=== PATIENT | female | born 1950 | race Caucasian/White ===

== ENCOUNTER 2019-06-26 20:41 | Inpatient (IN) ==
[2019-06-26] MEDS ORDERED: Naloxone 0.4 MG/ML INJ IVP PRN (23:03)
[2019-06-26] MEDS: 0.9 % Sodium Chloride 1,000 ML IVC SCH (23:41)
[2019-06-27 00:49] LABS: Basophils # 0.1 K/mcL (0.0-0.2); Basophils % 0.3 %; Hematocrit 30.1 % (35.3-44.9); Hemoglobin 9.5 g/dL (11.5-15.4); Immature Granulocytes % 0.5 % (0-4); Lymphocytes # 1.1 K/mcL (0.6-4.6); Lymphocytes % 6.2 %; Mean Corpuscular HGB Conc 31.6 g/dL (31.6-35.5); Mean Corpuscular Hemoglobin 27.4 pg (28.0-33.3); Mean Corpuscular Volume 86.7 fL (83.0-100.0); Mean Platelet Volume 10.7 fL (9.4-12.4); Monocytes # 1.5 K/mcL (0.0-1.3); Neutrophils # 15.4 K/mcL (1.6-8.9); Platelet Count 313 K/mcL (140-400); Red Blood Count 3.47 M/mcL (3.82-4.97); Red Cell Distribution Width 13.1 % (11.5-14.5); White Blood Count 18.2 K/mcL (4.3-11.1)
[2019-06-27 00:57] LABS: INR 2.3; Prothrombin Time 26.4 Seconds (9.4-12.1)
[2019-06-27 00:59] LABS: Activated Partial Thrombo Time 36.1 Seconds (26.0-36.0)
[2019-06-27 01:05] LABS: Albumin 3.6 g/dL (3.5-5.7); Bilirubin,Total 0.9 mg/dL (0.3-1.0); Calcium 8.8 mg/dL (8.6-10.3); Globulin 3.6 g/dL (2.4-3.5); Magnesium 1.2 mg/dL (1.6-2.6); Potassium 3.3 mEq/L (3.5-5.1); Total Protein 7.2 g/dL (6.4-8.9)
--- NOTE | 2019-06-27 07:45 | Internal Med History&Physical ---
Date of Encounter: 06/27/19 Time of Encounter: 03:00 Internal Medicine - H&P: HPI Chief complaint: Right Knee Pain Swelling History of present illness: Ms. Us is a 68 year old female with past medical history of paroxysmal atrial fibrillation on Eliquis, rheumatoid arthritis, chronic kidney disease and hypertension who initially presented to [facility] due to bilateral knee pain. Patient reports pain began last Tuesday and has gotten progressively worse since then. Patient reports pain with ambulation and now simply with movement of her knees, especially the right. Patient denies any trauma, injury or fall. Patient has noted increased swelling yesterday and today. Patient denies any prior similar episodes. No prior the surgery. Patient reports history of rheumatoid arthritis diagnosed in her mid 40s. Not currently on any DMARD's. Patient reports she does not have a fast food shift supervisor. Patient denies any history of gout. No reports of fever or chills. Initial workup at [facility] revealed a leukocytosis of 18. CT scan of the right knee was performed. CT report unavailable ago hardcopy was in patient's packet. Previous smoking history. Q uit 19 years ago. Denies alcohol use. Patient took her Eliquis last dose yesterday morning. Patient's knee was not tapped because of her anticoagulation. Case was discussed with orthopedics and patient was subsequently transferred for further evaluation. She received vancomycin and Zosyn while at [facility]. On my assessment patient was lying in bed in no acute distress. Does not clinically appear to be septic. Right knee swollen, nonerythematous and tender to mild palpation and any sort of manipulation. Past Med Surg Social Fam HX - Past Medical History Medical history: arthritis, atrial fibrillation, COPD, hypertension, renal disease Additional medical history: Stage 3 kidney disease Psychiatric history: anxiety - Past Surgical History Surgical History: no surgical history - Social History Smoking Status: Former smoker Packs per day: 1 Smokeless Tobacco Status: Yes Alcohol use: none Drug use: none - Family History Mother Age: 92 Family Member Ethnicity: Non- Living Status: Still Living Hx Family Endocrine Disorder: Yes (Diabetes) Internal Medicine - H&P: Meds Allergy/AdvReac Type Severity Reaction Status Date / Time No Known Allergies Allergy Verified 06/26/19 22:51 All Systems PM: A 10-system review of systems was performed and is negative for pertinent findings except as documented above in the HPI. - Constitutional Constitutional: no chills, no fever(s), no night sweats - EENT Eyes: no change in vision, no discharge, no pain, no photophobia Ears: no ear discharge, no ear pain, no tinnitus Nose, mouth and throat: no dysphagia, no nasal discharge, no neck pain, no sore throat - Cardiovascular Cardiovascular ROS IM: no chest pain, no diaphoresis, no dyspnea, no lightheadedness, no palpitations, no syncope - Respiratory Respiratory: no cough, no dyspnea, no wheezing, no excessive phlegm production - Gastrointestinal Gastrointestinal: no abdominal pain, no diarrhea, no hematemesis, no hematochezia, no melena, no nausea, no vomiting - Genitourinary Genitourinary: no change in urinary stream, no dysuria, no flank pain, no hematuria - Musculoskeletal Musculoskeletal ROS IM: no numbness, no tingling - Integumentary Integumentary IM: no rash, no unusual bruising - Neurological Neurological ROS: no confusion, no convulsions, no focal weakness, no numbness, no tingling, no tremor(s) - Hematologic/Lymphatic Hematologic/Lymphatic: no easy bruising - Constitutional Vitals: Temp Pulse Resp BP Pulse Ox 98.7 F 78 16 121/78 99 06/27/19 07:00 06/27/19 07:00 06/27/19 07:00 06/27/19 07:00 06/27/19 07:00 Exam: General: Alert and oriented 3 Skin:Normal color, no rash, no lesions. HEENT:EOM, pupils equal, round and reactive. Cardiovascular:Normal S1 & S2, no rubs, murmurs or gallops. No JVD. Pulse regular. Lungs:Normal breath sounds, no wheezes or crackles. Abdomen:Soft, non-tender, no rigidity. Extremities: No swelling of the right knee. Mildly warm. No erythema. Especially tender to palpation and manipulation. Neurological:Normal cognition and motor skills. Pulses:Carotid and radial pulses normal +2. Rest of the physical exam is non contributory Internal Med - H&P Results - Labs CBC & Chem 7: 06/27/19 00:24 06/27/19 00:24 Labs: Short CBC 06/27/19 Range/Units 00:24 WBC 18.2 H (4.3-11.1) K/mcL Hgb 9.5 L (11.5-15.4) g/dL Hct 30.1 L (35.3-44.9) % Plt Count 313 (140-400) K/mcL Neutrophils # 15.4 H (1.6-8.9) K/mcL BMP 06/27/19 00:24 Sodium 135 L Potassium 3.3 L Chloride 99 Carbon Dioxide 22 L BUN 26 H Creatinine 1.46 H Glucose 117 H Calcium 8.8 Liver Function 06/27/19 Range/Units 00:24 Total Bilirubin 0.9 (0.3-1.0) mg/dL AST 11 L (13-39) Units/L ALT 6 L (7-52) Units/L Alkaline Phosphatase 100 (34-104) Units/L Albumin 3.6 (3.5-5.7) g/dL - Assessment and Plan (1) Swelling of right knee joint Current Visit: Yes Status: Acute Assessment and plan: Patient presenting with right knee swelling of 5 days' duration associated with progressive pain initially with ambulation and weightbearing, and now with any movement of the knee. Edema of the right knee noted with tenderness to palpation. Exquisite pain elicited with any sort of manipulation of the knee. There is no erythema though there is mild warmth. Patient does have a leukocytosis of 18. Otherwise no other SIRS criteria. Obvious concern for septic arthritis. Though, given patient's history of reported rheumatoid arthritis and CKD, cannot rule out rheumatoid versus gouty flare. Knee was not tapped due to patient's history of A. fib currently on Eliquis, the last dose of which was taken yesterday morning. CT imaging was obtained however read not currently impacted. Patient currently in sinus rhythm. Orthopedics was consulted. -Continue supportive fluids -Pain control as needed -Continue vancomycin and Zosyn -We will send hard copy of CT scan of the knee downstairs to be uploaded -Patient's chads vasc score of 3 with a yearly risk of stroke of 3.2% which I feel is low enough to warrant holding patient's Eliquis for now given the fact that she is currently in sinus rhythm additionally and not starting patient on heparin drip. Await orthopedic evaluation and joint aspiration for further fluid analysis, culture is, crystals, cytology and Gram stain assessment. (2) Paroxysmal atrial fibrillation Current Visit: Yes Status: Acute Assessment and plan: History of atrial fibrillation currently on anticoagulation and rate control. Patient currently in sinus rhythm. We will hold Eliquis as discussed above. Continue rate control. (3) Rheumatoid arthritis Current Visit: Yes Status: Acute Assessment and plan: Patient reporting history of rheumatoid arthritis for the past 20 years. Patient states she has never seen a fast food shift supervisor and has never been on any other DMARD's due to her kidney function. She states her current condition is being managed by her family doctor. Qualifiers: Laterality: unspecified laterality Qualified Code(s): M06.9 - Rheumatoid arthritis, unspecified (4) Hypertension Current Visit: Yes Status: Acute Assessment and plan: Resume home antihypertensive as needed. Qualifiers: Hypertension type: essential hypertension Qualified Code(s): I10 - Essential (primary) hypertension (5) Chronic kidney disease Current Visit: Yes Status: Acute Assessment and plan: Patient reported history of chronic kidney disease. Current creatinine 1.46. Review of previous levels indicate a baseline around 1.6-1.7. Current GFR of 38 with previous levels fluctuating between CKD 3 and 4. -Continue fluids. We will monitor kidney function. Qualifiers: Chronic kidney disease stage: unspecified stage Qualified Code(s): N18.9 - Chronic kidney disease, unspecified - Time Spent With Patient Total time spent is greater than 50% in coordination of care (as documented) at patient's floor/unit and/or counseling patient:
[2019-06-27] MEDS: Piperacillin/Tazobactam 3.375 GM in 0.9 % Sodium Chloride Mini Bag 100 ML IVPB SCH ×2 (08:29→21:28)
--- NOTE | 2019-06-27 10:36 | Internal Med Progress Note ---
<Farrukh Caal I - Last Filed: 06/27/19 16:09> Hospitalist Progress Note - Encounter Date of Encounter: 06/27/19 Time of Encounter: 08:50 - Subjective Interval History: 60 year old female with PMH of A fib on eliquis , rheumatoid arthritis and CKD presented with right knee swelling of 5 days , today patient is seen and examined . she is still in pain , unable to move her right leg, Exquisite pain elicited with any sort of manipulation of the knee. There is no erythema though there is mild warmth. denies fever ,chills , denies nausea ,vomiting , diarrhea or constipation , no chest pain or SOB. no headaches numbness or weakness sensation . - Exam Vitals: Temp Pulse Resp BP Pulse Ox 98.7 F 78 16 121/78 99 06/27/19 07:00 06/27/19 07:00 06/27/19 07:00 06/27/19 07:00 06/27/19 07:00 Exam: General - Alert and oriented x 3, no acute distress and appears comfortable HEENT - Conjunctiva clear, no nasal or oral mucosal lesions/ulcerations , Heme/Lymph - No cervical or supraclavicular lymph node enlargement or tenderness. No pallor. Heart - S1S2 regular in rate and rhythm without murmurs, clicks or rubs. No peripheral edema. Radial pulses equal and strong Lungs - Unlabored breathing, decrease breath sound bilaterally ; no decrease in chest expansion Gastrointestinal - Soft, nontender, nondistended. Unable to palpate any hepatosplenomegaly Neurological - Gait normal, muscle strength 5/5 in all four extremities, sen sation intact Extremities - Swelling ,erythema and tenderness of right knee extending to mid thigh and lower leg , left extremity appears normal psych : normal mood and behaviour - Assessment and Plan (1) Swelling of right knee joint Current Visit: Yes Status: Acute Assessment and Plan: Patient presenting with right knee swelling of 5 days' duration associated with progressive pain initially with ambulation and weightbearing, and now with any movement of the knee. Edema of the right knee noted with tenderness to palpation. causes unknown yet could be septic arthritis vs gout wbc 18.2 , blood culture is pending Orthopedic is consulted for possible joint aspiration Continue vancomycin and Zosyn (2) Paroxysmal atrial fibrillation Current Visit: Yes Status: Acute Assessment and Plan: known history of Afib , rate controlled . on eliquis , We will hold Eliquis for possible arthrocentesis Patient currently in sinus rhythm (3) Rheumatoid arthritis Current Visit: Yes Status: Acute Assessment and Plan: Patient reporting history of rheumatoid arthritis for the past 20 years not on DMARD (4) Chronic kidney disease Current Visit: Yes Status: Acute Assessment and Plan: Patient reported history of chronic kidney disease. Current creatinine 1.46. Review of previous levels indicate a baseline around 1.6-1.7. Continue fluids. repeat BMP at morning avoid nephrotoxic medications - Time Spent with Patient Total time spent is greater than 50% in coordination of care (as documented) at patient's floor/unit and/or counseling patient: Internal Medicine: Result - Labs CBC & Chem 7: 06/27/19 00:24 06/27/19 00:24 Labs: Short CBC 06/27/19 Range/Units 00:24 WBC 18.2 H (4.3-11.1) K/mcL Hgb 9.5 L (11.5-15.4) g/dL Hct 30.1 L (35.3-44.9) % Plt Count 313 (140-400) K/mcL Neutrophils # 15.4 H (1.6-8.9) K/mcL BMP 06/27/19 00:24 Sodium 135 L Potassium 3.3 L Chloride 99 Carbon Dioxide 22 L BUN 26 H Creatinine 1.46 H Glucose 117 H Calcium 8.8 Liver Function 06/27/19 Range/Units 00:24 Total Bilirubin 0.9 (0.3-1.0) mg/dL AST 11 L (13-39) Units/L ALT 6 L (7-52) Units/L Alkaline Phosphatase 100 (34-104) Units/L Albumin 3.6 (3.5-5.7) g/dL - ABG Interpretation ABG results: PT/INR, D-dimer PT 26.4 Seconds (9.4-12.1) H 06/27/19 00:24 Consult Discharge Plan - Plan Referrals: Symone Ríos CNP [Primary Care Provider] - <Jorge Yang - Last Filed: 06/27/19 21:20> Hospitalist Progress Note - Encounter Date of Encounter: 06/27/19 - Exam Vitals: Temp Pulse Resp BP Pulse Ox 97.8 F 109 18 162/85 98 06/27/19 19:35 06/27/19 19:35 06/27/19 19:35 06/27/19 19:35 06/27/19 19:35 - Assessment and Plan (1) Swelling of right knee joint Current Visit: Yes Status: Acute (2) Paroxysmal atrial fibrillation Current Visit: Yes Status: Acute (3) Rheumatoid arthritis Current Visit: Yes Status: Acute (4) Hypertension Current Visit: Yes Status: Acute (5) Chronic kidney disease Current Visit: Yes Status: Acute - Time Spent with Patient Total time spent is greater than 50% in coordination of care (as documented) at patient's floor/unit and/or counseling patient: Internal Medicine: Result - Labs CBC & Chem 7: 06/27/19 00:24 06/27/19 00:24 Labs: Short CBC 06/27/19 Range/Units 00:24 WBC 18.2 H (4.3-11.1) K/mcL Hgb 9.5 L (11.5-15.4) g/dL Hct 30.1 L (35.3-44.9) % Plt Count 313 (140-400) K/mcL Neutrophils # 15.4 H (1.6-8.9) K/mcL BMP 06/27/19 00:24 Sodium 135 L Potassium 3.3 L Chloride 99 Carbon Dioxide 22 L BUN 26 H Creatinine 1.46 H Glucose 117 H Calcium 8.8 Liver Function 06/27/19 Range/Units 00:24 Total Bilirubin 0.9 (0.3-1.0) mg/dL AST 11 L (13-39) Units/L ALT 6 L (7-52) Units/L Alkaline Phosphatase 100 (34-104) Units/L Albumin 3.6 (3.5-5.7) g/dL Urine 06/27/19 Range/Units 16:10 Urine Color Yellow (Yellow) Urine Clarity Cloudy A (Clear) Urine pH 5.0 (5.0-8.0) pH Units Ur Specific [place] 1.017 (1.010-1.025) Urine Protein Trace (Neg-Trace) mg/dL Urine Glucose (UA) Normal (Normal) mg/dL - ABG Interpretation ABG results: PT/INR, D-dimer PT 26.4 Seconds (9.4-12.1) H 06/27/19 00:24 - Attending Attestation I saw evaluated and examined this patient and reviewed objective data including labs and my medical decision-making was reviewed with the Resident Physician. I agree with the documented findings, disposition and treatment plan as described except to any changes set forth below. We independently had [id number] contact with the patient. <Jorge Yang - Last Filed: 06/27/19 21:20> (3) Rheumatoid arthritis Qualifiers: Laterality: unspecified laterality Qualified Code(s): M06.9 - Rheumatoid arthritis, unspecified (4) Hypertension Qualifiers: Hypertension type: essential hypertension Qualified Code(s): I10 - Essential (primary) hypertension (5) Chronic kidney disease Qualifiers: Chronic kidney disease stage: unspecified stage Qualified Code(s): N18.9 - Chronic kidney disease, unspecified
--- NOTE | 2019-06-27 17:35 | Orthopedic Consult Note ---
Date of Encounter: 06/27/19 Time of Encounter: 17:00 Assessment and Plan (1) Rheumatoid arthritis Current Visit: Yes Status: Chronic Qualifiers: Rheumatoid arthritis location: unspecified site Rheumatoid factor presence: unspecified presence Qualified Code(s): M06.9 - Rheumatoid arthritis, unspecified (2) Swelling of right knee joint Current Visit: Yes Status: Acute History of Present Illness Chief complaint: right knee pain HPI: Ms. Us is a 68 year old female presenting to [facility] from [facility] for right knee pain with concern for septic joint. Patient reports history of RA long standing., patient denies ever having been on medication for this condition. She relates that she has been following with her PCP and taking Tramadol long term care phlebotomist. Denies history of fracture or orthopedic surgery She denies recent trauma. States her right knee began bothering her to the point she was having trouble ambulating and subsequently sought care at [facility] ED. Labwork and vitals reviewed. On exam patient lying comfortably in bed. States not too painful unless she moves the right knee. A&Ox3 Swelling to RLE noted including knee. Bilateral valgus deformity noted Palpation right knee reveals moderate effusion. Patient expresses pain upon palpation of the right knee. No area appears to be more focally tender. Motion is limited appx 5-45 degrees with no improvement upon passive rom apparently secondary to pain and stiffness. Patient cries out in pain with endpoint motion. No calf tenderness, erythema, or warmth noted b/l calves. Ankle ROM intact bilaterally. Left knee unremarkable. Sensation intact. DP pulses intact b/l Neurovascularly intact b/l LE Right knee effusion History of Rheumatoid arthritis Patient with leukocytosis in setting of rheumatoid arthritis and new onset right knee pain and effusion. Concern exists for joint source with elevated ESR, however, with imaging at present unavailable and patient with other possible, yet not yet evaluated sources. We will review imaging and attempt aspiration tomorrow sending for cultures and counts. Please keep patient NPO at midnight in case of need for IR aspiration versus surgical intervention Thank you for this consultation Past Med Surg Social Fam HX - Past Medical History Medical history: arthritis, atrial fibrillation, COPD, hypertension, renal disease Additional medical history: Stage 3 kidney disease Psychiatric history: anxiety - Past Surgical History Surgical History: no surgical history - Social History Smoking Status: Former smoker Packs per day: 1 Smokeless Tobacco Status: Yes Alcohol use: none Drug use: none - Family History Mother Age: 92 Family Member Ethnicity: Non- Living Status: Still Living Hx Family Endocrine Disorder: Yes (Diabetes) Medications and Allergies Apixaban [Eliquis] 5 mg PO BID 06/27/19 [History] Ascorbate Calcium [Vitamin C] 500 mg PO DAILY 06/27/19 [History] Aspirin [Adult Aspirin] 81 mg PO DAILY 06/27/19 [History] Cholecalciferol (D-3) [Vitamin D] 2,000 unit PO DAILY 06/27/19 [History] Citalopram Hydrobromide [Citalopram HBr] 10 mg PO DAILY 06/27/19 [History] Cyclobenzaprine [Flexeril] 10 mg PO TID PRN 06/27/19 [History] Famotidine [Pepcid] 20 mg PO BID 06/27/19 [History] Ferrous Sulfate [Iron] 325 mg PO DAILY 06/27/19 [History] Levothyroxine Sodium [Levo-T] 50 mcg PO QAM 06/27/19 [History] Metoprolol Tartrate 100 mg PO DAILY 06/27/19 [History] Simvastatin [Zocor] 40 mg PO HS 06/27/19 [History] Tramadol HCl [Ultram] 50 mg PO BID PRN 06/27/19 [History] Valsartan/Hydrochlorothiazide [Diovan Hct 160-25 mg Tablet] 1 tab PO DAILY 06/27/19 [History] Allergy/AdvReac Type Severity Reaction Status Date / Time No Known Allergies Allergy Verified 06/26/19 22:51 All Systems Reviewed: The remainder of the systems were reviewed and are negative Physical Exam - Constitutional Vitals: Temp Pulse Resp BP Pulse Ox 98.6 F 90 15 129/82 100 06/27/19 15:37 06/27/19 15:37 06/27/19 15:37 06/27/19 15:37 06/27/19 15:37 Results - Labs Result Diagrams: 06/28/19 05:18 06/28/19 05:18 Labs: Abnormal lab results WBC 18.2 K/mcL (4.3-11.1) H 06/27/19 00:24 RBC 3.47 M/mcL (3.82-4.97) L 06/27/19 00:24 Hgb 9.5 g/dL (11.5-15.4) L 06/27/19 00:24 Hct 30.1 % (35.3-44.9) L 06/27/19 00:24 MCH 27.4 pg (28.0-33.3) L 06/27/19 00:24 Neutrophils # 15.4 K/mcL (1.6-8.9) H 06/27/19 00:24 Monocytes # 1.5 K/mcL (0.0-1.3) H 06/27/19 00:24 ESR >= 130 mm/hr (0-15) H 06/27/19 00:24 PT 26.4 Seconds (9.4-12.1) H 06/27/19:24 APTT 36.1 Seconds (26.0-36.0) H 06/27/19 00:24 Sodium 135 mEq/L (136-145) L 06/27/19:24 Potassium 3.3 mEq/L (3.5-5.1) L 06/27/19:24 Carbon Dioxide 22 mEq/L (23-29) L 06/27/19 00:24 BUN 26 mg/dL (8-23) H 06/27/19 00:24 Creatinine 1.46 mg/dL (0.60-1.20) H 06/27/19 00:24 Est GFR ( Amer) 43 (> 60) L 06/27/19 00:24 Est GFR (Non-Af Amer) 36 (> 60) L 06/27/19 00:24 Glucose 117 mg/dL (70-105) H 06/27/19 00:24 Uric Acid 8.3 mg/dL (2.3-7.6) H 06/27/19 00:24 Magnesium 1.2 mg/dL (1.6-2.6) L 06/27/19:24 AST 11 Units/L (13-39) L 06/27/19:24 ALT 6 Units/L (7-52) L 06/27/19:24 C-Reactive Protein 290 mg/L (Less than 10) H 06/27/19 00:24 Globulin 3.6 g/dL (2.4-3.5) H 06/27/19 00:24 Albumin/Globulin Ratio 1.0 (1.1-2.2) L 06/27/19 00:24 H & H 06/27/19 Range/Units 00:24 Hgb 9.5 L (11.5-15.4) g/dL Hct 30.1 L (35.3-44.9) % All other labs normal. Consult Discharge Plan - Plan Referrals: Symone Ríos CNP [Primary Care Provider] -
[2019-06-27 18:28] LABS: Bilirubin,Urine Negative (Negative); Blood,Urine Small (Negative); Clarity,Urine Cloudy (Clear); Color,Urine Yellow (Yellow); Glucose,Urine (UA) Normal (Normal); Ketones,Urine Negative (Negative); Leukocyte Esterase,Urine Large (Negative); Nitrite,Urine Positive (Negative); Protein,Urine Trace mg/dL (Neg-Trace); Specific Gravity,Urine 1.017 (1.010-1.025); Urobilinogen,Urine Normal (Normal)
[2019-06-27 18:29] LABS: Bacteria,Urine None Seen per hpf (None-Few); Hyaline Casts,Urine None Seen per lpf (None-Few); Squamous Epithelial Cell,Urine Few per lpf (None-Few); WBC,Urine TNTC per hpf (0-3)
[2019-06-27] MEDS: Acetaminophen 325 MG TABLET PO PRN (21:37)
[2019-06-27] MEDS: Metoprolol 100 MG TABLET PO SCH (21:42)
[2019-06-28] MEDS: Piperacillin/Tazobactam 3.375 GM in 0.9 % Sodium Chloride Mini Bag 100 ML IVPB SCH ×3 (01:56→17:17)
[2019-06-28] MEDS: 0.9 % Sodium Chloride 1,000 ML IVC SCH (05:05)
[2019-06-28 05:31] LABS: Basophils % 0.2 %; Eosinophils # 0.1 K/mcL (0.0-0.6); Eosinophils % 0.4 %; Hematocrit 26.5 % (35.3-44.9); Hemoglobin 8.3 g/dL (11.5-15.4); Immature Granulocytes % 0.5 % (0-4); Lymphocytes # 1.3 K/mcL (0.6-4.6); Lymphocytes % 7.8 %; Mean Corpuscular HGB Conc 31.3 g/dL (31.6-35.5); Mean Corpuscular Hemoglobin 27.7 pg (28.0-33.3); Mean Corpuscular Volume 88.3 fL (83.0-100.0); Mean Platelet Volume 10.3 fL (9.4-12.4); Monocytes # 1.1 K/mcL (0.0-1.3); Monocytes % 6.6 %; Neutrophils # 13.6 K/mcL (1.6-8.9); Platelet Count 303 K/mcL (140-400); Red Cell Distribution Width 13.2 % (11.5-14.5); Segmented Neutrophils % 84.5 %; White Blood Count 16.1 K/mcL (4.3-11.1)
[2019-06-28 05:39] LABS: INR 1.9; Prothrombin Time 21.9 Seconds (9.4-12.1)
[2019-06-28 05:58] LABS: Albumin 3.1 g/dL (3.5-5.7); Albumin/Globulin Ratio 0.9 (1.1-2.2); Bilirubin,Total 0.7 mg/dL (0.3-1.0); Calcium 8.5 mg/dL (8.6-10.3); Globulin 3.3 g/dL (2.4-3.5); Magnesium 1.2 mg/dL (1.6-2.6); Phosphorous 3.8 mg/dL (2.7-4.5); Potassium 3.3 mEq/L (3.5-5.1); Total Protein 6.4 g/dL (6.4-8.9)
--- NOTE | 2019-06-28 07:20 | Internal Med Progress Note ---
<Farrukh Caal I - Last Filed: 06/28/19 16:35> Hospitalist Progress Note - Encounter Date of Encounter: 06/28/19 Time of Encounter: 09:12 - Subjective Interval History: today patient is seen and examined . she is still in pain but improving compared to yesterday , unable to move her right leg,pain elicited with any sort of manipulation of the knee. There is no erythema though there is mild warmth. denies fever ,chills , denies nausea ,vomiting , diarrhea or constipation , no chest pain or SOB. no headaches numbness or weakness sensation . - Exam Vitals: Temp Pulse Resp BP Pulse Ox 98.2 F 79 16 139/81 98 06/28/19 07:07 06/28/19 07:07 06/28/19 07:07 06/28/19 07:07 06/28/19 07:07 Exam: General - Alert and oriented x 3, no acute distress and appears comfortable HEENT - Conjunctiva clear, no nasal or oral mucosal lesions/ulcerations , Heme/Lymph - No cervical or supraclavicular lymph node enlargement or tenderness. No pallor. Heart - S1S2 regular in rate and rhythm without murmurs, clicks or rubs. No peripheral edema. Radial pulses equal and strong Lungs - Unlabored breathing, decrease breath sound bilaterally ; no decrease in chest expansion Gastrointestinal - Soft, nontender, nondistended. Unable to palpate any hepatosplenomegaly Neurological - Gait normal, muscle strength 5/5 in all four extremities, s ensation intact Extremities - Swelling and tenderness of right knee extending to mid thigh and lower leg , left knee appears normal psych : normal mood and behaviour - Assessment and Plan (1) Swelling of right knee joint Current Visit: Yes Status: Acute Assessment and Plan: Patient presenting with right knee swelling of 5 days' duration associated with progressive pain initially with ambulation and weightbearing, and now with any movement of the knee. Edema of the right knee noted with tenderness to palpation. causes unknown yet could be septic arthritis vs gout vitals are stable except for bp which was 139/81 , afebrile wbc 16.2 , blood culture from 06/27 is pending Orthopedic is consulted for joint aspiration today , Attempted aspiration unsuccessful in obtaining aspirate Plan to IR ultrasound guided aspiration with cultures of joint fluid to rule out knee as infectious source. Continue vancomycin and Zosyn day 2 (2) Paroxysmal atrial fibrillation Current Visit: Yes Status: Acute Assessment and Plan: known history of Afib , rate controlled . on eliquis , We will hold Eliquis for possible arthrocentesis Patient currently in sinus rhythm (3) Rheumatoid arthritis Current Visit: Yes Status: Chronic Assessment and Plan: Patient reporting history of rheumatoid arthritis for the past 20 years not on DMARD (4) Chronic kidney disease Current Visit: Yes Status: Acute Assessment and Plan: Patient reported history of chronic kidney disease. Current creatinine 1.59 Review of previous levels indicate a baseline around 1.6-1.7. Continue fluids. monitor bmp . k 3.3 replaced avoid nephrotoxic medications - Time Spent with Patient Total time spent is greater than 50% in coordination of care (as documented) at patient's floor/unit and/or counseling patient: Internal Medicine: Result - Labs CBC & Chem 7: 06/28/19 05:18 06/28/19 05:18 Labs: Short CBC 06/28/19 Range/Units 05:18 WBC 16.1 H (4.3-11.1) K/mcL Hgb 8.3 L (11.5-15.4) g/dL Hct 26.5 L (35.3-44.9) % Plt Count 303 (140-400) K/mcL Neutrophils # 13.6 H (1.6-8.9) K/mcL BMP 06/28/19 05:18 Sodium 136 Potassium 3.3 L Chloride 102 Carbon Dioxide 20 L BUN 35 H Creatinine 1.59 H Glucose 108 H Calcium 8.5 L Liver Function 06/28/19 Range/Units 05:18 Total Bilirubin 0.7 (0.3-1.0) mg/dL AST 12 L (13-39) Units/L ALT 7 (7-52) Units/L Alkaline Phosphatase 112 H (34-104) Units/L Albumin 3.1 L (3.5-5.7) g/dL Urine 06/27/19 Range/Units 16:10 Urine Color Yellow (Yellow) Urine Clarity Cloudy A (Clear) Urine pH 5.0 (5.0-8.0) pH Units Ur Specific [place] 1.017 (1.010-1.025) Urine Protein Trace (Neg-Trace) mg/dL Urine Glucose (UA) Normal (Normal) mg/dL - ABG Interpretation ABG results: PT/INR, D-dimer PT 21.9 Seconds (9.4-12.1) H 06/28/19 05:18 Consult Discharge Plan - Plan Referrals: Symone Ríos CNP [Primary Care Provider] - <Jorge Yang - Last Filed: 06/28/19 18:04> Hospitalist Progress Note - Encounter Date of Encounter: 06/28/19 - Exam Vitals: Temp Pulse Resp BP Pulse Ox 98.2 F 60 18 137/64 96 06/28/19 16:29 06/28/19 16:29 06/28/19 16:29 06/28/19 16:29 06/28/19 16:29 - Assessment and Plan (1) Swelling of right knee joint Current Visit: Yes Status: Acute (2) Paroxysmal atrial fibrillation Current Visit: Yes Status: Acute (3) Rheumatoid arthritis Current Visit: Yes Status: Chronic (4) Hypertension Current Visit: Yes Status: Acute (5) Chronic kidney disease Current Visit: Yes Status: Acute - Time Spent with Patient Total time spent is greater than 50% in coordination of care (as documented) at patient's floor/unit and/or counseling patient: Internal Medicine: Result - Labs CBC & Chem 7: 06/28/19 05:18 06/28/19 05:18 Labs: Short CBC 06/28/19 Range/Units 05:18 WBC 16.1 H (4.3-11.1) K/mcL Hgb 8.3 L (11.5-15.4) g/dL Hct 26.5 L (35.3-44.9) % Plt Count 303 (140-400) K/mcL Neutrophils # 13.6 H (1.6-8.9) K/mcL BMP 06/28/19 05:18 Sodium 136 Potassium 3.3 L Chloride 102 Carbon Dioxide 20 L BUN 35 H Creatinine 1.59 H Glucose 108 H Calcium 8.5 L Liver Function 06/28/19 Range/Units 05:18 Total Bilirubin 0.7 (0.3-1.0) mg/dL AST 12 L (13-39) Units/L ALT 7 (7-52) Units/L Alkaline Phosphatase 112 H (34-104) Units/L Albumin 3.1 L (3.5-5.7) g/dL Urine 06/27/19 Range/Units 16:10 Urine Color Yellow (Yellow) Urine Clarity Cloudy A (Clear) Urine pH 5.0 (5.0-8.0) pH Units Ur Specific [place] 1.017 (1.010-1.025) Urine Protein Trace (Neg-Trace) mg/dL Urine Glucose (UA) Normal (Normal) mg/dL - ABG Interpretation ABG results: PT/INR, D-dimer PT 21.9 Seconds (9.4-12.1) H 06/28/19 05:18 - Impressions Impressions Knee CT 06/28/19 08:37 IMPRESSION: Moderate tricompartmental osteoarthritis of the knee with joint space narrowing, subchondral changes and marginal osteophytes. Moderate joint effusion and Fofana's cyst. No acute fracture or dislocation. D/ / 06/28/2019 11:16:41 Raul Wolf MD / mariah Interpreting Provider: Raul Wolf MD - Attending Attestation I saw evaluated and examined this patient and reviewed objective data including labs and my medical decision-making was reviewed with the Resident Physician. I agree with the documented findings, disposition and treatment plan as described except to any changes set forth below. We independently had [id number] contact with the patient. <Farrukh Caal I - Last Filed: 06/28/19 16:35> (3) Rheumatoid arthritis Qualifiers: Rheumatoid arthritis location: unspecified site Rheumatoid factor presence: unspecified presence Qualified Code(s): M06.9 - Rheumatoid arthritis, unspecified (4) Chronic kidney disease Qualifiers: Chronic kidney disease stage: unspecified stage Qualified Code(s): N18.9 - Chronic kidney disease, unspecified <Jorge Yang - Last Filed: 06/28/19 18:04> (3) Rheumatoid arthritis Qualifiers: Rheumatoid arthritis location: unspecified site Rheumatoid factor presence: unspecified presence Qualified Code(s): M06.9 - Rheumatoid arthritis, unspecified (4) Hypertension Qualifiers: Hypertension type: essential hypertension Qualified Code(s): I10 - Essential (primary) hypertension (5) Chronic kidney disease Qualifiers: Chronic kidney disease stage: unspecified stage Qualified Code(s): N18.9 - Chronic kidney disease, unspecified
[2019-06-28] MEDS: Metoprolol 100 MG TABLET PO SCH (08:51)
--- NOTE | 2019-06-28 08:52 | Orthopedics Progress Note ---
Date of Encounter: 06/28/19 Time of Encounter: 16:17 - Assessment and Plan (1) Rheumatoid arthritis Current Visit: Yes Status: Chronic Qualifiers: Rheumatoid arthritis location: unspecified site Rheumatoid factor presence: unspecified presence Qualified Code(s): M06.9 - Rheumatoid arthritis, unspecified (2) Swelling of right knee joint Current Visit: Yes Status: Acute Subjective Interval history: Attempted aspiration under sterile conditions - unsuccessful in obtaining aspirate Patient tolerated well Discussed with Dr. Yang re: aspiration - patient is improved on antibiotics however having continued right knee pain Would recommend IR ultrasound guided aspiration with cultures of joint fluid to rule out knee as infectious source. CT lumbar reviewed with Dr. Irwin - appears as degenerative changes Objective Vital signs: Vital Signs Temp Pulse Resp BP Pulse Ox 06/28/19 07:07 98.2 F 79 16 139/81 98 06/28/19 03:26 97.7 F 68 17 104/64 99 06/28/19 00:14 98.3 F 64 16 97/61 94 06/27/19 19:35 97.8 F 109 18 162/85 98 06/27/19 15:37 98.6 F 90 15 129/82 100 Intake and Output 06/27/19 06/28/19 06/28/19 23:59 07:59 15:59 Intake Total 1200 / 1200 Output Total 700 / 700 Balance -700 / -350 1200 / 1200 Intake: IV Fluids 1200 / 1200 0.9 % Sodium Chloride 1,000 ML 1000 / 1000 @ 75 mls/hr IVC .[id number] [facility] Rx #:[id number] Zosyn 3.375 GM In 0.9 % Sodium 200 / 200 Chloride (Mini-Bag +) 100 ML @ 25 mls/hr IVPB Q8HR [facility] Rx#: [id number] Output: Straight Cath 700 / 700 Other: Blood Glucose* 86 114 - Labs CBC & BMP: 06/30/19 05:22 06/30/19 05:22 Labs: Abnormal lab results WBC 16.1 K/mcL (4.3-11.1) H 06/28/19 05:18 RBC 3.00 M/mcL (3.82-4.97) L 06/28/19 05:18 Hgb 8.3 g/dL (11.5-15.4) L 06/28/19 05:18 Hct 26.5 % (35.3-44.9) L 06/28/19 05:18 MCH 27.7 pg (28.0-33.3) L 06/28/19 05:18 MCHC 31.3 g/dL (31.6-35.5) L 06/28/19 05:18 Neutrophils # 13.6 K/mcL (1.6-8.9) H 06/28/19 05:18 Monocytes # 1.5 K/mcL (0.0-1.3) H 06/27/19 00:24 ESR >= 130 mm/hr (0-15) H 06/27/19 00:24 PT 21.9 Seconds (9.4-12.1) H 06/28/19 05:18 APTT 36.1 Seconds (26.0-36.0) H 06/27/19 00:24 Sodium 135 mEq/L (136-145) L 06/27/19 00:24 Potassium 3.3 mEq/L (3.5-5.1) L 06/28/19 05:18 Carbon Dioxide 20 mEq/L (23-29) L 06/28/19 05:18 BUN 35 mg/dL (8-23) H 06/28/19 05:18 Creatinine 1.59 mg/dL (0.60-1.20) H 06/28/19 05:18 Est GFR ( Amer) 39 (> 60) L 06/28/19 05:18 Est GFR (Non-Af Amer) 32 (> 60) L 06/28/19 05:18 Glucose 108 mg/dL (70-105) H 06/28/19 05:18 POC Glucose 114 mg/dL (70-99) H 06/28/19 05:52 Uric Acid 8.3 mg/dL (2.3-7.6) H 06/27/19 00:24 Calcium 8.5 mg/dL (8.6-10.3) L 06/28/19 05:18 Magnesium 1.2 mg/dL (1.6-2.6) L 06/28/19 05:18 AST 12 Units/L (13-39) L 06/28/19 05:18 ALT 6 Units/L (7-52) L 06/27/19 00:24 Alkaline Phosphatase 112 Units/L (34-104) H 06/28/19 05:18 C-Reactive Protein 290 mg/L (Less than 10) H 06/27/19 00:24 Albumin 3.1 g/dL (3.5-5.7) L 06/28/19 05:18 Globulin 3.6 g/dL (2.4-3.5) H 06/27/19 00:24 Albumin/Globulin Ratio 0.9 (1.1-2.2) L 06/28/19 05:18 Urine Clarity Cloudy (Clear) A 06/27/19 16:10 Urine Blood Small (Negative) H 06/27/19 16:10 Urine Nitrite Positive (Negative) A 06/27/19 16:10 Ur Leukocyte Esterase Large (Negative) H 06/27/19 16:10 Urine Microscopic RBC 3-5 per hpf (0-3) H 06/27/19 16:10 Urine Microscopic WBC TNTC per hpf (0-3) H 06/27/19 16:10 Vancomycin Trough 13 mcg/mL (5-10) H 06/28/19 05:18 Consult Discharge Plan - Plan Referrals: Symone Ríos, [employer]INE [employer]TER [Primary Care Provider] -
[2019-06-28] MEDS: Famotidine 20 MG TABLET PO SCH (19:58)
[2019-06-29] MEDS: Piperacillin/Tazobactam 3.375 GM in 0.9 % Sodium Chloride Mini Bag 100 ML IVPB SCH ×3 (00:29→16:59)
[2019-06-29 04:50] LABS: Basophils % 0.2 %; Eosinophils # 0.1 K/mcL (0.0-0.6); Eosinophils % 0.8 %; Hematocrit 26.4 % (35.3-44.9); Hemoglobin 8.5 g/dL (11.5-15.4); Immature Granulocytes % 0.4 % (0-4); Lymphocytes # 1.5 K/mcL (0.6-4.6); Lymphocytes % 9.6 %; Mean Corpuscular HGB Conc 32.2 g/dL (31.6-35.5); Mean Corpuscular Hemoglobin 28.2 pg (28.0-33.3); Mean Corpuscular Volume 87.7 fL (83.0-100.0); Mean Platelet Volume 10.4 fL (9.4-12.4); Monocytes % 6.5 %; Neutrophils # 12.8 K/mcL (1.6-8.9); Platelet Count 355 K/mcL (140-400); Red Blood Count 3.01 M/mcL (3.82-4.97); Red Cell Distribution Width 13.5 % (11.5-14.5); Segmented Neutrophils % 82.5 %; White Blood Count 15.5 K/mcL (4.3-11.1)
[2019-06-29 04:57] LABS: INR 1.6; Prothrombin Time 18.5 Seconds (9.4-12.1)
[2019-06-29 05:18] LABS: Albumin 3.1 g/dL (3.5-5.7); Albumin/Globulin Ratio 0.9 (1.1-2.2); Bilirubin,Total 0.6 mg/dL (0.3-1.0); Calcium 8.9 mg/dL (8.6-10.3); Globulin 3.5 g/dL (2.4-3.5); Magnesium 1.8 mg/dL (1.6-2.6); Potassium 4.5 mEq/L (3.5-5.1); Total Protein 6.6 g/dL (6.4-8.9)
[2019-06-29] MEDS: Metoprolol 100 MG TABLET PO SCH (08:20)
[2019-06-29] MEDS: Famotidine 20 MG TABLET PO SCH ×2 (08:21→20:17)
--- NOTE | 2019-06-29 14:09 | Internal Med Progress Note ---
<Jorge Yang - Last Filed: 06/29/19 16:19> Hospitalist Progress Note - Encounter Date of Encounter: 06/29/19 - Exam Vitals: Temp Pulse Resp BP Pulse Ox 98.5 F 75 17 117/54 98 06/29/19 15:53 06/29/19 15:53 06/29/19 15:53 06/29/19 15:53 06/29/19 15:53 - Assessment and Plan (1) Swelling of right knee joint Current Visit: Yes Status: Acute (2) Paroxysmal atrial fibrillation Current Visit: Yes Status: Acute (3) Rheumatoid arthritis Current Visit: Yes Status: Chronic (4) Hypertension Current Visit: Yes Status: Acute (5) Chronic kidney disease Current Visit: Yes Status: Acute - Time Spent with Patient Total time spent is greater than 50% in coordination of care (as documented) at patient's floor/unit and/or counseling patient: Internal Medicine: Result - Labs CBC & Chem 7: 06/29/19 04:00 06/29/19 04:00 Labs: Short CBC 06/29/19 Range/Units 04:00 WBC 15.5 H (4.3-11.1) K/mcL Hgb 8.5 L (11.5-15.4) g/dL Hct 26.4 L (35.3-44.9) % Plt Count 355 (140-400) K/mcL Neutrophils # 12.8 H (1.6-8.9) K/mcL BMP 06/29/19 04:00 Sodium 137 Potassium 4.5 D Chloride 103 Carbon Dioxide 20 L BUN 33 H Creatinine 1.37 H Glucose 114 H Calcium 8.9 Liver Function 06/29/19 Range/Units 04:00 Total Bilirubin 0.6 (0.3-1.0) mg/dL AST 34 (13-39) Units/L ALT 21 (7-52) Units/L Alkaline Phosphatase 221 H (34-104) Units/L Albumin 3.1 L (3.5-5.7) g/dL - ABG Interpretation ABG results: PT/INR, D-dimer PT 18.5 Seconds (9.4-12.1) H 06/29/19 04:00 - Impressions Impressions Joint Aspiration/Injection 06/29/19 12:00 IMPRESSION: Successful fluoroscopic-guided aspiration of the right knee. D/ / Rayo Abebe MD / Rayo Abebe MD Interpreting Provider: Rayo Abebe MD Consult Discharge Plan - Plan Referrals: Symone Ríos DESIGN CHIEF [Primary Care Provider] - - Attending Attestation I saw evaluated and examined this patient and reviewed objective data including labs and my medical decision-making was reviewed with the Resident Physician. I agree with the documented findings, disposition and treatment plan as described except to any changes set forth below. We independently had [id number] contact with the patient. <Farrukh Caal I - Last Filed: 06/29/19 18:54> Hospitalist Progress Note - Encounter Date of Encounter: 06/29/19 Time of Encounter: 09:20 - Subjective Interval History: today patient is seen and examined . she is still in pain said 10/10 , unable to move her right leg,pain elicited with any sort of manipulation of the knee. There is no erythema though there is mild warmth. denies fever ,chills , denies nausea ,vomiting , diarrhea or constipation , no chest pain or SOB. no headaches numbness or weakness sensation . - Exam Vitals: Temp Pulse Resp BP Pulse Ox 98.4 F 74 16 117/64 100 06/29/19 10:23 06/29/19 10:23 06/29/19 10:23 06/29/19 10:23 06/29/19 10:23 Exam: General - Alert and oriented x 3, no acute distress and appears comfortable HEENT - Conjunctiva clear, no nasal or oral mucosal lesions/ulcerations , Heme/Lymph - No cervical or supraclavicular lymph node enlargement or tenderness. No pallor. Heart - S1S2 regular in rate and rhythm without murmurs, clicks or rubs. No peripheral edema. Radial pulses equal and strong Lungs - Unlabored breathing, decrease breath sound bilaterally ; no decrease in chest expansion Gastrointestinal - Soft, nontender, nondistended. Unable to palpate any hepatosplenomegaly Neurological - Gait normal, muscle strength 5/5 in all four extremities, sensation intact Extremities - Swelling and tenderness of right knee extending to mid thigh and lower leg , left knee appears normal psych : normal mood and behaviour - Assessment and Plan (1) Swelling of right knee joint Current Visit: Yes Status: Acute Assessment and Plan: -Patient presenting with right knee swelling of 5 days' duration associated with progressive pain initially with ambulation and weightbearing, and now with any movement of the knee. Edema of the right knee noted with tenderness to palpation. -causes unknown yet could be septic arthritis vs gout -vitals are stable ,afebrile -wbc 15.2 , blood culture from 06/27 is pending -Status post CT right knee 06/28/2019: Osteoarthritis of the knee with joint space narrowing, subchondral changes and marginal osteophytes. Moderate joint effusion and Fofana cyst. No acute fracture or dislocation. -Orthopedic is consulted for joint aspiration today , IR guided right knee aspiration & interventional radiology was able to remove 6 mL of fluid and it was not purulent but it was thick and concerning for possible infection -Fluid is sent for Gram stain, cultures, cell count and chemistry -Might need a rheumatology consultation , although we start her on prednisone daily -Continue vancomycin and Zosyn day 3 (2) Paroxysmal atrial fibrillation Current Visit: Yes Status: Acute Assessment and Plan: known history of Afib , rate controlled . on eliquis , We will hold Eliquis for arthrocentesis Patient currently in sinus rhythm (3) Rheumatoid arthritis Current Visit: Yes Status: Chronic (4) Chronic kidney disease Current Visit: Yes Status: Acute Assessment and Plan: Patient reported history of chronic kidney disease. Current creatinine 1.59 Review of previous levels indicate a baseline around 1.6-1.7. Continue fluids. monitor bmp . k 3.3 replaced avoid nephrotoxic medications - Time Spent with Patient Total time spent is greater than 50% in coordination of care (as documented) at patient's floor/unit and/or counseling patient: Internal Medicine: Result - Labs CBC & Chem 7: 06/29/19 04:00 06/29/19 04:00 Labs: Short CBC 06/29/19 Range/Units 04:00 WBC 15.5 H (4.3-11.1) K/mcL Hgb 8.5 L (11.5-15.4) g/dL Hct 26.4 L (35.3-44.9) % Plt Count 355 (140-400) K/mcL Neutrophils # 12.8 H (1.6-8.9) K/mcL BMP 06/29/19 04:00 Sodium 137 Potassium 4.5 D Chloride 103 Carbon Dioxide 20 L BUN 33 H Creatinine 1.37 H Glucose 114 H Calcium 8.9 Liver Function 06/29/19 Range/Units 04:00 Total Bilirubin 0.6 (0.3-1.0) mg/dL AST 34 (13-39) Units/L ALT 21 (7-52) Units/L Alkaline Phosphatase 221 H (34-104) Units/L Albumin 3.1 L (3.5-5.7) g/dL - ABG Interpretation ABG results: PT/INR, D-dimer PT 18.5 Seconds (9.4-12.1) H 06/29/19 04:00 <Jorge Yang - Last Filed: 06/29/19 16:19> (3) Rheumatoid arthritis Qualifiers: Rheumatoid arthritis location: unspecified site Rheumatoid factor presence: unspecified presence Qualified Code(s): M06.9 - Rheumatoid arthritis, unspecified (4) Hypertension Qualifiers: Hypertension type: essential hypertension Qualified Code(s): I10 - Essential (primary) hypertension (5) Chronic kidney disease Qualifiers: Chronic kidney disease stage: unspecified stage Qualified Code(s): N18.9 - Chronic kidney disease, unspecified <Farrukh Caal I - Last Filed: 06/29/19 18:54> (3) Rheumatoid arthritis Qualifiers: Rheumatoid arthritis location: unspecified site Rheumatoid factor presence: unspecified presence Qualified Code(s): M06.9 - Rheumatoid arthritis, unspecified (4) Chronic kidney disease Qualifiers: Chronic kidney disease stage: unspecified stage Qualified Code(s): N18.9 - Chronic kidney disease, unspecified
--- NOTE | 2019-06-29 15:54 | Infectious Disease Consult ---
Infectious Disease-Consult - Encounter Date/Time Date of Encounter: 06/29/19 Time of Encounter: 15:42 - Data of Consult Patient: new to practice Reason for consult: Right knee swelling Consult date: 06/29/19 Requesting Physician: Jorge Yang MD Primary Care Provider: Symone RAMIREZ HPI: Patient is a 68-year-old woman who was transferred from [facility] for bilateral knee pain. We were consult did on 06/29/2019 for right knee swelling. Patient is a 68-year-old woman with past medical history mentioned below including rheumatoid arthritis that was diagnosed about 20 years ago currently not taking any immunosuppressive therapy, not taking any DMARD. The only thing she is on is acetaminophen and ibuprofen. Patient tells me she was in the usual state of health until a few days prior to admission when she had severe pain in the bilateral ankles of bilateral knees and bilateral hips. Patient said the pain was so bad that she could not walk. Patient denied any fevers denies any chills denied any night sweats or rigors. Patient came in to [facility] for evaluation. Since admission, patient has been afebrile no tachycardia or tachypnea. Presenting labs revealed a WBC of 18.2 with 85% neutrophils. BUN 26 creatinine 1.46. ESR/CRP >130/290. A urinalysis was done and it revealed positive nitrites, large leukocyte esterase and pyuria WBC TNTC Blood cultures 06/07/[address] CT of the right lower extremity revered moderate chronic, part mental osteoarthritis of the knee with joint space narrowing, subchondral changes and marginal osteophytes. Moderate joint effusion and Fofana's cyst. No acute fracture or dislocation. Patient was started on vancomycin and Zosyn on 06/27/2019. We were asked to evaluate the patient's make further recommendations. On further questioning, patient never had any constitutional symptoms. No fevers no chills no night sweats. She tells me the pain in the joints is bilateral lower extremities including the feet the ankles the bilateral knees in the bilateral hips area she tells me that the right knee feels a little bit worse than the rest of them. Patient denies any similar episode like this in the recent past. Patient denies any headaches no chest pain no shortness of breath no nausea no vomiting or diarrhea and no urinary symptoms. - ROS Review of Systems: 10 point review of systems done, negative other for what is mentioned in history of present illness. - Results CBC & Chem 7: 06/29/19 04:00 06/29/19 04:00 - Exam Vitals: Temp Pulse Resp BP Pulse Ox 98.4 F 74 16 117/64 100 06/29/19 10:23 06/29/19 10:23 06/29/19 10:23 06/29/19 10:23 06/29/19 10:23 Exam: GENERAL: Sitting in the chair, appears comfortable. HEAD: Normocephalic atraumatic EYES: PERRLA, EOMI, no conjunctival hemorrhage, sclera anicteric ENT: Mucous membranes moist, no oral thrush NECK: Supple. No meningeal signs. No masses LUNGS: Chest expanding symmetrically. Lungs sounds audible both lung gresham. No wheezing, no rhonchi CV: RRR, S1S2, ABDOMEN: Soft, nontender, nondistended. Bowel sounds audible BACK: No CVA tenderness. Normal inspection. No tenderness over the spine EXTREMITY: Bilateral lower extremity edema. Patient is obese so a limited exam but I did not appreciate any kelvin effusion, asymmetry with the other knee, erythema or warmth to touch. Patient is very tender though in the ankles and the knees bilaterally SKIN: Normal color. No rash. NEURO: Awake alert oriented 3. No obvious focal deficit PSYCH: Calm and appropriate. No agitation. Apixaban [Eliquis] 5 mg PO BID 06/27/19 [History] Ascorbate Calcium [Vitamin C] 500 mg PO DAILY 06/27/19 [History] Aspirin [Adult Aspirin] 81 mg PO DAILY 06/27/19 [History] Cholecalciferol (D-3) [Vitamin D] 2,000 unit PO DAILY 06/27/19 [History] Citalopram Hydrobromide [Citalopram HBr] 10 mg PO DAILY 06/27/19 [History] Cyclobenzaprine [Flexeril] 10 mg PO TID PRN 06/27/19 [History] Famotidine [Pepcid] 20 mg PO BID 06/27/19 [History] Ferrous Sulfate [Iron] 325 mg PO DAILY 06/27/19 [History] Levothyroxine Sodium [Levo-T] 50 mcg PO QAM 06/27/19 [History] Metoprolol Tartrate 100 mg PO DAILY 06/27/19 [History] Simvastatin [Zocor] 40 mg PO HS 06/27/19 [History] Tramadol HCl [Ultram] 50 mg PO BID PRN 06/27/19 [History] Valsartan/Hydrochlorothiazide [Diovan Hct 160-25 mg Tablet] 1 tab PO DAILY 06/27/19 [History] Allergy/AdvReac Type Severity Reaction Status Date / Time No Known Allergies Allergy Verified 06/26/19 22:51 - Assessment and Plan (1) Joint pain Current Visit: Yes Status: Acute Acute sudden onset joint pain bilateral ankles, bilateral knees and bilateral hips On admission patient had one SIRS criteria (leukocytosis) Etiology not clear. Infectious etiology is much lower on my differential since it is involving multiple joints with no underlying constitutional symptoms Status post CT right knee 06/28/2019: Osteoarthritis of the knee with joint space narrowing, subchondral changes and marginal osteophytes. Moderate joint effusion and Fofana cyst. No acute fracture or dislocation. Started empirically on vancomycin/Zosyn 06/27/2019 Qualifiers: Joint pain location: knee Laterality: bilateral Qualified Code(s): M25.561 - Pain in right knee; M25.562 - Pain in left knee SNOMED Code(s): 11476901 (2) Morbid obesity Current Visit: Yes Status: Acute SNOMED Code(s): 349141406 (3) Hypothyroidism Current Visit: Yes Status: Acute Qualifiers: Hypothyroidism type: unspecified Qualified Code(s): E03.9 - Hypothyroidism, unspecified SNOMED Code(s): 99502447 (4) Depression Current Visit: Yes Status: Acute SNOMED Code(s): 81088405 (5) Paroxysmal atrial fibrillation Current Visit: Yes Status: Acute SNOMED Code(s): 151756939 (6) Rheumatoid arthritis Current Visit: Yes Status: Chronic Qualifiers: Rheumatoid arthritis location: unspecified site Rheumatoid factor presence: unspecified presence Qualified Code(s): M06.9 - Rheumatoid arthritis, unspecified SNOMED Code(s): 15992335 (7) Hypertension Current Visit: Yes Status: Acute Qualifiers: Hypertension type: essential hypertension Qualified Code(s): I10 - Essential (primary) hypertension SNOMED Code(s): 73488041 (8) Chronic kidney disease Current Visit: Yes Status: Acute Qualifiers: Chronic kidney disease stage: unspecified stage Qualified Code(s): N18.9 - Chronic kidney disease, unspecified SNOMED Code(s): 435110959 - Recommendations Recommendations: At this point my index of suspicion for infectious etiology is low on the differential specially with the presentation of multiple joints and history of rheumatoid arthritis I was about to stop all antibiotics unobserved but I just received a phone call from [facility] stating that interventional radiology was able to remove 6 mL of fluid and it was not purulent but it was thick and concerning for possible infection Fluid is sent for Gram stain, cultures, cell count and chemistry If Gram stain is negative and cultures remain negative I would recommend stopping all antibiotics and observing. Might need to rheumatoid factor and a rheumatology consultation Await thoracentesis results Monitor labs and for drug toxicity Goal vancomycin trough around 10 Past Med Surg Social Fam HX - Past Medical History Medical history: arthritis, atrial fibrillation, COPD, hypertension, renal disease Additional medical history: Stage 3 kidney disease Psychiatric history: anxiety - Past Surgical History Surgical History: no surgical history - Social History Smoking Status: Former smoker Packs per day: 1 Smokeless Tobacco Status: Yes Alcohol use: none Drug use: none - Family History Mother Age: 92 Family Member Ethnicity: Non- Living Status: Still Living Hx Family Endocrine Disorder: Yes (Diabetes) Consult Discharge Plan - Plan Referrals: Symone Ríos CNP [Primary Care Provider] -
[2019-06-29 16:20] LABS: Source,Synovial Fluid right knee
[2019-06-29] MEDS: predniSONE 20 MG TABLET PO SCH (17:00)
[2019-06-29 17:14] LABS: Appearance,Synovial Fluid Cloudy (Clear-Hazy); Color,Synovial Fluid Amber (Straw)
[2019-06-29] MEDS: Acetaminophen 325 MG TABLET PO PRN (20:22)
[2019-06-30] MEDS: Piperacillin/Tazobactam 3.375 GM in 0.9 % Sodium Chloride Mini Bag 100 ML IVPB SCH ×2 (00:04→08:40)
[2019-06-30 06:56] LABS: Basophils % 0.1 %; Hematocrit 25.5 % (35.3-44.9); Immature Granulocytes % 0.8 % (0-4); Lymphocytes # 0.8 K/mcL (0.6-4.6); Lymphocytes % 5.6 %; Mean Corpuscular HGB Conc 31.4 g/dL (31.6-35.5); Mean Corpuscular Hemoglobin 27.6 pg (28.0-33.3); Mean Corpuscular Volume 87.9 fL (83.0-100.0); Mean Platelet Volume 10.5 fL (9.4-12.4); Monocytes # 0.4 K/mcL (0.0-1.3); Monocytes % 2.8 %; Neutrophils # 12.6 K/mcL (1.6-8.9); Platelet Count 380 K/mcL (140-400); Red Cell Distribution Width 13.9 % (11.5-14.5); Segmented Neutrophils % 90.7 %; White Blood Count 13.9 K/mcL (4.3-11.1)
[2019-06-30 07:18] LABS: Calcium 9.1 mg/dL (8.6-10.3); Potassium 5.2 mEq/L (3.5-5.1)
[2019-06-30] MEDS: Metoprolol 100 MG TABLET PO SCH (08:39)
[2019-06-30] MEDS: Famotidine 20 MG TABLET PO SCH ×2 (08:40→20:46)
[2019-06-30] MEDS: predniSONE 20 MG TABLET PO SCH (08:40)
--- NOTE | 2019-06-30 11:01 | Internal Med Progress Note ---
Hospitalist Progress Note - Encounter Date of Encounter: 06/30/19 Time of Encounter: 10:00 - Subjective Interval History: Patient had notable improvement in pain of both knees after starting steroids yesterday. Denies fevers/chills, SOB, n/V, diaphoresis. - Exam Vitals: Temp Pulse Resp BP Pulse Ox 97.8 F 89 15 157/91 100 06/30/19 07:51 06/30/19 07:51 06/30/19 07:51 06/30/19 07:51 06/30/19 07:51 Exam: General - Alert and oriented x 3, no acute distress and appears comfortable HEENT - Conjunctiva clear, no nasal or oral mucosal lesions/ulcerations , Heme/Lymph - No cervical or supraclavicular lymph node enlargement or tenderness. No pallor. Heart - S1S2 regular in rate and rhythm without murmurs, clicks or rubs. No peripheral edema. Radial pulses equal and strong Lungs - Unlabored breathing, decrease breath sound bilaterally ; no decrease in chest expansion Gastrointestinal - Soft, nontender, nondistended. Unable to palpate any hepatosplenomegaly Neurological - Gait normal, muscle strength 5/5 in all four extremities, sensation intact Extremities - Swelling and tenderness of right knee extending to mid thigh and lower leg , left knee appears normal psych : normal mood and behaviour - Assessment and Plan (1) Swelling of right knee joint Current Visit: Yes Status: Acute Assessment and Plan: -Patient presenting with right knee swelling of 5 days' duration associated with progressive pain initially with ambulation and weightbearing, and now with any movement of the knee. Edema of the right knee noted with tenderness to palpation. -causes unknown yet could be septic arthritis vs gout -vitals are stable ,afebrile -Status post CT right knee 06/28/2019: Osteoarthritis of the knee with joint space narrowing, subchondral changes and marginal osteophytes. Moderate joint effusion and Fofana cyst. -IR guided right knee aspiration & interventional radiology was able to remove 6 mL of fluid and it was not purulent but it was thick and concerning for possible infection Pain appears to improve after Prednisone which is suggestive of rheumatologic causes. Urate crystals were also seen on cytology. Follow-up joint aspiration cultures. Prelim is negative for bacteria growth and positive for many white blood cells. DC antibiotics and observe. (2) Paroxysmal atrial fibrillation Current Visit: Yes Status: Acute (3) Rheumatoid arthritis Current Visit: Yes Status: Chronic (4) Hypertension Current Visit: Yes Status: Acute (5) Chronic kidney disease Current Visit: Yes Status: Acute - Time Spent with Patient Total time spent is greater than 50% in coordination of care (as documented) at patient's floor/unit and/or counseling patient: Internal Medicine: Result - Labs CBC & Chem 7: 06/30/19 05:22 06/30/19 05:22 Labs: Short CBC 06/30/19 Range/Units 05:22 WBC 13.9 H (4.3-11.1) K/mcL Hgb 8.0 L (11.5-15.4) g/dL Hct 25.5 L (35.3-44.9) % Plt Count 380 (140-400) K/mcL Neutrophils # 12.6 H (1.6-8.9) K/mcL BMP 06/30/19 05:22 Sodium 138 Potassium 5.2 H Chloride 106 Carbon Dioxide 20 L BUN 35 H Creatinine 1.65 H Glucose 156 H Calcium 9.1 - ABG Interpretation ABG results: PT/INR, D-dimer PT 18.5 Seconds (9.4-12.1) H 06/29/19 04:00 - Impressions Impressions Joint Aspiration/Injection 06/29/19 12:00 IMPRESSION: Successful fluoroscopic-guided aspiration of the right knee. D/ / Rayo Abebe MD / Rayo Abebe MD Interpreting Provider: Rayo Abebe MD Consult Discharge Plan - Plan Referrals: Syomne Ríos CNP [Primary Care Provider] - (3) Rheumatoid arthritis Qualifiers: Rheumatoid arthritis location: unspecified site Rheumatoid factor presence: unspecified presence Qualified Code(s): M06.9 - Rheumatoid arthritis, unspecified (4) Hypertension Qualifiers: Hypertension type: essential hypertension Qualified Code(s): I10 - Essential (primary) hypertension (5) Chronic kidney disease Qualifiers: Chronic kidney disease stage: unspecified stage Qualified Code(s): N18.9 - Chronic kidney disease, unspecified
[2019-06-30] MEDS: Acetaminophen 325 MG TABLET PO PRN (20:51)
[2019-07-01 08:15] VITALS: BP 169/87
[2019-07-01 09:37] LABS: Basophils % 0.2 %; Eosinophils % 0.1 %; Hematocrit 28.7 % (35.3-44.9); Immature Granulocytes % 1.2 % (0-4); Lymphocytes # 2.6 K/mcL (0.6-4.6); Mean Corpuscular HGB Conc 31.4 g/dL (31.6-35.5); Mean Corpuscular Hemoglobin 27.4 pg (28.0-33.3); Mean Corpuscular Volume 87.5 fL (83.0-100.0); Mean Platelet Volume 10.1 fL (9.4-12.4); Monocytes # 0.7 K/mcL (0.0-1.3); Monocytes % 4.1 %; Neutrophils # 13.7 K/mcL (1.6-8.9); Platelet Count 465 K/mcL (140-400); Red Blood Count 3.28 M/mcL (3.82-4.97); Red Cell Distribution Width 14.1 % (11.5-14.5); Segmented Neutrophils % 79.4 %; White Blood Count 17.3 K/mcL (4.3-11.1)
[2019-07-01 09:48] LABS: Calcium 9.5 mg/dL (8.6-10.3); Potassium 4.1 mEq/L (3.5-5.1)
[2019-07-01] MEDS: predniSONE 20 MG TABLET PO SCH (10:05)
[2019-07-01] MEDS: Metoprolol 100 MG TABLET PO SCH (10:06)
[2019-07-01] MEDS: Famotidine 20 MG TABLET PO SCH (10:06)
--- NOTE | 2019-07-01 10:11 | Discharge Summary ---
- NOTES TO OUTPATIENT PROVIDER Notes to Outpatient Provider: Refer to outpatient Rheumatology for further evaluation. Recheck BMP in 3-5 days. Follow-up synovial fluid cultures. Prelim is no growth to date. Patient was instructed if developed fevers/chills, diaphoresis to be seen immediatly. Orders not resulted at time of discharge: Pending orders 06/26/19 23:06 Culture,Blood [BC] Stat 06/29/19 15:20 Culture,Anaerobic [RM] Routine Culture,Body Fluid [RM] Routine Date of Encounter: 07/01/19 Time of Encounter: 10:06 - Discharge Diagnosis (1) Swelling of right knee joint Priority: Primary Status: Acute (2) Paroxysmal atrial fibrillation Priority: Secondary Status: Acute (3) Rheumatoid arthritis Priority: Secondary Status: Chronic Qualifiers: Rheumatoid arthritis location: unspecified site Rheumatoid factor presence: unspecified presence Qualified Code(s): M06.9 - Rheumatoid arthritis, unspecified (4) Hypertension Priority: Secondary Status: Acute Qualifiers: Hypertension type: essential hypertension Qualified Code(s): I10 - Essential (primary) hypertension (5) Chronic kidney disease Priority: Secondary Status: Acute Qualifiers: Chronic kidney disease stage: unspecified stage Qualified Code(s): N18.9 - Chronic kidney disease, unspecified Hospital course: Ms. Us is a 68 year old female with history of afib on Eliquis, rheumatoid arthritis, CKD, hypertension presented as a transfer from [facility] for bilateral knee pain. Started for a few days and progressively got worse especially at night time. No trauma history. She was diagnosed with R.A. in her mid 40s, never on DMARD's. 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 Initial workup at [facility] showed leukocytosis of 18. CT of knee was done but report was not sent over. She was transferred here to rule out septic arthritis. She was emperically started on Zosyn. Orthopedic Surgery was consulted, tried to do arthrocentesis at bedside which was unsuccessful, IR did guided arthrocentesis. Synovial fluid was negative for bacteria preliminary but positive for uric acid, and WBCs. Pain and symptoms did not improve with antibiotics. Infectious Disease was consulted, and believed infection was less likely. She was started on Prednisone and patient noted significant improvement of pain. Likely this was gout or rheumatoid arthritis. She was monitored off of antibiotics and was stable. She was discharged to SNF in stable condition. - Time Spent with Patient Total time spent providing and/or coordinating discharge services: - Discharge Medications Prescriptions: New Amoxicillin/Clavulanate [Augmentin] 875 mg PO BIDWM 4 Days #8 tablet predniSONE [PredniSONE] 10 mg PO DAILY #17 tablet Continued Cholecalciferol (D-3) [Vitamin D] 2,000 unit PO DAILY Valsartan/Hydrochlorothiazide [Diovan Hct 160-25 mg Tablet] 1 tab PO DAILY Simvastatin [Zocor] 40 mg PO HS Metoprolol Tartrate 100 mg PO DAILY Levothyroxine Sodium [Levo-T] 50 mcg PO QAM Ferrous Sulfate [Iron] 325 mg PO DAILY Famotidine [Pepcid] 20 mg PO BID Cyclobenzaprine [Flexeril] 10 mg PO TID PRN PRN Reason: Muscle Spasm Citalopram Hydrobromide [Citalopram HBr] 10 mg PO DAILY Ascorbate Calcium [Vitamin C] 500 mg PO DAILY Apixaban [Eliquis] 5 mg PO BID Aspirin [Adult Aspirin] 81 mg PO DAILY Tramadol HCl [Ultram] 50 mg PO BID PRN 3 Days #6 tablet PRN Reason: Pain Home Medications: Apixaban [Eliquis] 5 mg PO BID 06/27/19 [History] Ascorbate Calcium [Vitamin C] 500 mg PO DAILY 06/27/19 [History] Aspirin [Adult Aspirin] 81 mg PO DAILY 06/27/19 [History] Cholecalciferol (D-3) [Vitamin D] 2,000 unit PO DAILY 06/27/19 [History] Citalopram Hydrobromide [Citalopram HBr] 10 mg PO DAILY 06/27/19 [History] Cyclobenzaprine [Flexeril] 10 mg PO TID PRN 06/27/19 [History] Famotidine [Pepcid] 20 mg PO BID 06/27/19 [History] Ferrous Sulfate [Iron] 325 mg PO DAILY 06/27/19 [History] Levothyroxine Sodium [Levo-T] 50 mcg PO QAM 06/27/19 [History] Metoprolol Tartrate 100 mg PO DAILY 06/27/19 [History] Simvastatin [Zocor] 40 mg PO HS 06/27/19 [History] Valsartan/Hydrochlorothiazide [Diovan Hct 160-25 mg Tablet] 1 tab PO DAILY 06/27/19 [History] Amoxicillin/Clavulanate [Augmentin] 875 mg PO BIDWM 4 Days #8 tablet 07/01/19 [Rx] Tramadol HCl [Ultram] 50 mg PO BID PRN 3 Days #6 tablet 07/01/19 [Rx] predniSONE [PredniSONE] 10 mg PO DAILY #17 tablet 07/01/19 [Rx] Allergies/Adverse Reactions: Allergy/AdvReac Type Severity Reaction Status Date / Time No Known Allergies Allergy Verified 06/26/19 22:51 Date of admission: 06/28/19 18:23 Primary care physician: Symone Ríos Consults: 06/26/19 23:08 Consult to Orthopedic Surgery [CONS] Routine Consulting Provider: [facility] Reason for Consult: Concern for Septic Joint Call Completed: Yes 06/29/19 06:35 Consult to Interventional Radiology [CONS] Routine Consulting Provider: Radiology [facility] Reason for Consult: right knee effusion; ultrasound guided aspiration desired Time Notified: 06:36 Call Completed: No 06/29/19 08:44 Consult to Infectious Diseases [CONS] Routine Consulting Provider: Infectious Disease [place] Reason for Consult: right knee swelling Call Completed: No 06/29/19 09:02 PT [Consult to Physical Therapy] [CONS] Routine Comment: Evaluate, develop and implement POC Reason for Consult: eval and treat. Need SNF on discharge Does patient have active BEDREST order?: No Is patient medically & hemodynamically stable?: Yes 06/29/19 09:04 OT [Consult to Occupational Therapy] [CONS] Routine Comment: Evaluate, develop and implement POC Reason for Consult: Eval and treat. need SNF on discharge Does patient have active BEDREST order?: No Is patient medically & hemodynamically stable?: Yes 06/29/19 09:08 Consult to Straight Pin Making Machine Operator [CONS] Routine Reason for SW Consult: will need snf on DC, PT OT consulted Discharging clinician: Jorge Yang - Constitutional Vitals: Temp Pulse Resp BP Pulse Ox 98.1 F 91 16 169/87 100 07/01/19 08:13 07/01/19 08:13 07/01/19 08:13 07/01/19 08:13 07/01/19 08:13 Exam: General - Alert and oriented x 3, no acute distress and appears comfortable HEENT - Conjunctiva clear, no nasal or oral mucosal lesions/ulcerations , Heme/Lymph - No cervical or supraclavicular lymph node enlargement or tenderness. No pallor. Heart - S1S2 regular in rate and rhythm without murmurs, clicks or rubs. No peripheral edema. Radial pulses equal and strong Lungs - Unlabored breathing, decrease breath sound bilaterally ; no decrease in chest expansion Gastrointestinal - Soft, nontender, nondistended. Unable to palpate any hepatosplenomegaly Neurological - Gait normal, muscle strength 5/5 in all four extremities, sensati on intact Extremities - Swelling and tenderness of right knee extending to mid thigh and lower leg , left knee appears normal. Edema improved since yesterday, ROM improved since yesterday. psych : normal mood and behaviour - Patient Status Disposition: Transfer SNF Condition: Good Functional capacity at discharge: uses cane/walker Overall status at discharge: patient is progressing back to baseline - Discharge Instructions Follow Up With: Symone Ríos CNP [Primary Care Provider] - - Diet and Activity Activity: as per physical therapy Diet: advance to your usual diet
--- NOTE | 2019-07-01 10:32 | Physician Discharge Referral ---
ExtendedCare Referral Info Provider in Charge after Transfer: Other Institutional Level of Care: Skilled - Diagnosis (1) Swelling of right knee joint Priority: Primary Status: Acute (2) Paroxysmal atrial fibrillation Priority: Secondary Status: Acute (3) Rheumatoid arthritis Priority: Secondary Status: Chronic (4) Hypertension Priority: Secondary Status: Acute (5) Chronic kidney disease Priority: Secondary Status: Acute - Transfer Medications Prescriptions: Amoxicillin/Clavulanate [Augmentin] 875 mg PO BIDWM 4 Days #8 tablet predniSONE [PredniSONE] 10 mg PO DAILY #17 tablet Tramadol HCl [Ultram] 50 mg PO BID PRN 3 Days #6 tablet PRN Reason: Pain Home Medications: Apixaban [Eliquis] 5 mg PO BID 06/27/19 [History] Ascorbate Calcium [Vitamin C] 500 mg PO DAILY 06/27/19 [History] Aspirin [Adult Aspirin] 81 mg PO DAILY 06/27/19 [History] Cholecalciferol (D-3) [Vitamin D] 2,000 unit PO DAILY 06/27/19 [History] Citalopram Hydrobromide [Citalopram HBr] 10 mg PO DAILY 06/27/19 [History] Cyclobenzaprine [Flexeril] 10 mg PO TID PRN 06/27/19 [History] Famotidine [Pepcid] 20 mg PO BID 06/27/19 [History] Ferrous Sulfate [Iron] 325 mg PO DAILY 06/27/19 [History] Levothyroxine Sodium [Levo-T] 50 mcg PO QAM 06/27/19 [History] Metoprolol Tartrate 100 mg PO DAILY 06/27/19 [History] Simvastatin [Zocor] 40 mg PO HS 06/27/19 [History] Valsartan/Hydrochlorothiazide [Diovan Hct 160-25 mg Tablet] 1 tab PO DAILY 06/27/19 [History] Amoxicillin/Clavulanate [Augmentin] 875 mg PO BIDWM 4 Days #8 tablet 07/01/19 [Rx] Tramadol HCl [Ultram] 50 mg PO BID PRN 3 Days #6 tablet 07/01/19 [Rx] predniSONE [PredniSONE] 10 mg PO DAILY #17 tablet 07/01/19 [Rx] Allergies/Adverse Reactions: Allergy/AdvReac Type Severity Reaction Status Date / Time No Known Allergies Allergy Verified 06/26/19 22:51 - Respiratory Orders Smoking Cessation: Smoking cessation has been advised. For more information, call the [place] Tobacco Quit Line at 0-210-TIOD-NOW. - Rehabiliation Orders Rehab Orders: ROM Exercises, Evaluation for Physical Therapy, Evaluation for Occupational Therapy - Diet Orders Cardiac CERTIFICATION: I certify that the transfer of the above named patient to an Extended Care Facility is necessary for the continuing treatment of the diagnosis listed. The above information is true and accurate reflection of patient's current condition. Confidential - Redisclosure prohibited without a patient's written consent.
[2019-07-01] MEDS ORDERED: Aminoglycoside Consult 1 EACH MC ONE (16:11)
== END 2019-07-01 16:12 | DRG 546 ==
LOC: 3NENU → SUATTDRO 22:00 → 3ANU 06-27 15:16
PROVIDERS: ADMIT Internal Medicine; ATTEND Student in an Organized Health Care Education/Training Program